=== PATIENT | female | born 1980 | race Caucasian/White ===

== ENCOUNTER 2020-03-24 11:39 | Observation (INO) | payer OTHER ==
[2020-03-24] MEDS ORDERED: IPRATROPIUM-ALBUTEROL 3 ML NEB INHALATION STA (11:53)
--- NOTE | 2020-03-24 11:56 | ED ---
General Adult HPI - General Chief complaint: Shortness of Breath Stated complaint: SOB Time Seen by Provider: 03/24/20 11:47 Source: patient, RN notes reviewed Mode of arrival: ambulatory Limitations: no limitations - History of Present Illness Initial comments: Patient is a pleasant 39-year-old female presenting to the emergency Department with complaints of difficulty breathing. Symptoms have been ongoing for the past several days however mild for maybe a week or 2 prior to that. Patient does have history of long-standing asthma with somewhat similar symptoms. No significant cough. Patient has had a dull ache waxing and waning in her chest t hat has been mild. None at this time. No leg pain or leg swelling. No fevers. - Related Data Home Medications Medication Instructions Recorded Confirmed Albuterol Sulfate [Proair Hfa] 1 puff INHALATION RT-Q6H PRN 05/14/16 05/14/16 Bronkaid 1 tab PO DAILY PRN 05/14/16 05/14/16 Multivitamins, Thera [Multivitamin] 1 tab PO DAILY 05/14/16 05/14/16 Previous Rx's Medication Instructions Recorded Albuterol Inhaler (Mhu) [Ventolin 2 puff INHALATION Q4HR PRN #1 05/14/16 Hfa Inhaler (Mhu)] inhaler LORazepam [Ativan] 0.5 mg PO TID PRN #15 tab 05/14/16 methylPREDNISolone [Medrol] 4 mg PO DIRECTED #1 tab.ds.pk 05/14/16 Allergies Allergy/AdvReac Type Severity Reaction Status Date / Time Penicillins Allergy Unknown Verified 03/24/20 11:44 Review of Systems ROS Statement: Those systems with pertinent positive or pertinent negative responses have been documented in the HPI. ROS Other: All systems not noted in ROS Statement are negative. Constitutional: Denies: fever, chills Eyes: Denies: eye pain ENT: Denies: ear pain Respiratory: Reports: dyspnea. Denies: cough Cardiovascular: Reports: chest pain Endocrine: Reports: fatigue Gastrointestinal: Denies: abdominal pain Genitourinary: Denies: urgency Musculoskeletal: Denies: back pain Skin: Denies: rash Neurological: Denies: weakness Past Medical History Past Medical History: No Reported History Additional Past Medical History / Comment(s): MTHFR History of Any Multi-Drug Resistant Organisms: None Reported Past Surgical History: Section, Tubal Ligation Past Psychological History: No Psychological Hx Reported Smoking Status: Never smoker Past Alcohol Use History: Occasional Past Drug Use History: None Reported General Exam Limitations: no limitations General appearance: alert, in no apparent distress Head exam: Present: normocephalic Eye exam: Present: normal appearance Neck exam: Present: normal inspection Respiratory exam: Present: normal lung sounds bilaterally Cardiovascular Exam: Present: regular rate, normal rhythm Expanded Peripheral pulses: 2+: Radial (R), Radial (L), Dorsalis Pedis (R), Dorsalis Pedis (L) GI/Abdominal exam: Present: soft. Absent: tenderness Extremities exam: Present: normal inspection. Absent: pedal edema, calf tenderness Back exam: Present: normal inspection Neurological exam: Present: alert Psychiatric exam: Present: normal affect, normal mood Skin exam: Present: normal color Course Vital Signs 03/24/20 03/24/20 03/24/20 11:40 12:15 12:23 Temperature 97.9 F Pulse Rate 56 L 64 60 Respiratory 18 Rate Blood Pressure 120/77 O2 Sat by Pulse 100 Oximetry EKG Findings - EKG Comments: EKG Findings:: Sinus bradycardia 59. IN 124. QRS 98. QT 440. QTc 443. Normal axis. Normal QRS. No acute ST change. Medical Decision Making - Medical Decision Making Patient reevaluated and resting comfortably in bed. No improvement of symptoms with nebulizer treatment. Patient updated on results and plan. Case was discussed with Dr. Mckeon, who will admit covered for Dr. Lopez, who admits for Dr. Hatch. - Lab Data Result diagrams: 03/24/20 12:20 03/24/20 12:20 Lab Results 03/24/20 03/24/20 03/24/20 Range/Units 12:20 12:20 12:20 WBC 4.9 (3.8-10.6) k/uL RBC 4.25 (3.80-5.40) m/uL Hgb 13.6 (11.4-16.0) gm/dL Hct 42.3 (34.0-46.0) % MCV 99.7 (80.0-100.0) fL MCH 32.0 (25.0-35.0) pg MCHC 32.1 (31.0-37.0) g/dL RDW 12.0 (11.5-15.5) % Plt Count 252 (150-450) k/uL Neutrophils % 67 % Lymphocytes % 25 % Monocytes % 4 % Eosinophils % 2 % Basophils % 1 % Neutrophils # 3.3 (1.3-7.7) k/uL Lymphocytes # 1.2 (1.0-4.8) k/uL Monocytes # 0.2 (0-1.0) k/uL Eosinophils # 0.1 (0-0.7) k/uL Basophils # 0.0 (0-0.2) k/uL PT 10.3 (9.0-12.0) sec INR 1.0 (<1.2) APTT 22.7 (22.0-30.0) sec D-Dimer 0.57 (<0.60) mg/L FEU Sodium 138 (137-145) mmol/L Potassium 3.9 (3.5-5.1) mmol/L Chloride 107 (98-107) mmol/L Carbon Dioxide 28 (22-30) mmol/L Anion Gap 3 mmol/L BUN 9 (7-17) mg/dL Creatinine 0.57 (0.52-1.04) mg/dL Est GFR (CKD-EPI)AfAm >90 (>60 ml/min/1.73 sqM) Est GFR (CKD-EPI)NonAf >90 (>60 ml/min/1.73 sqM) Glucose 85 (74-99) mg/dL Plasma Lactic Acid Gio (0.7-2.0) mmol/L Calcium 9.3 (8.4-10.2) mg/dL Total Bilirubin 0.7 (0.2-1.3) mg/dL AST 21 (14-36) U/L ALT 13 (4-34) U/L Alkaline Phosphatase 63 (38-126) U/L Troponin I (0.000-0.034) ng/mL Total Protein 7.0 (6.3-8.2) g/dL Albumin 4.1 (3.5-5.0) g/dL 03/24/20 03/24/20 Range/Units 12:20 12:20 WBC (3.8-10.6) k/uL RBC (3.80-5.40) m/uL Hgb (11.4-16.0) gm/dL Hct (34.0-46.0) % MCV (80.0-100.0) fL MCH (25.0-35.0) pg MCHC (31.0-37.0) g/dL RDW (11.5-15.5) % Plt Count (150-450) k/uL Neutrophils % % Lymphocytes % % Monocytes % % Eosinophils % % Basophils % % Neutrophils # (1.3-7.7) k/uL Lymphocytes # (1.0-4.8) k/uL Monocytes # (0-1.0) k/uL Eosinophils # (0-0.7) k/uL Basophils # (0-0.2) k/uL PT (9.0-12.0) sec INR (<1.2) APTT (22.0-30.0) sec D-Dimer (<0.60) mg/L FEU Sodium (137-145) mmol/L Potassium (3.5-5.1) mmol/L Chloride (98-107) mmol/L Carbon Dioxide (22-30) mmol/L Anion Gap mmol/L BUN (7-17) mg/dL Creatinine (0.52-1.04) mg/dL Est GFR (CKD-EPI)AfAm (>60 ml/min/1.73 sqM) Est GFR (CKD-EPI)NonAf (>60 ml/min/1.73 sqM) Glucose (74-99) mg/dL Plasma Lactic Acid Gio 1.3 (0.7-2.0) mmol/L Calcium (8.4-10.2) mg/dL Total Bilirubin (0.2-1.3) mg/dL AST (14-36) U/L ALT (4-34) U/L Alkaline Phosphatase (38-126) U/L Troponin I <0.012 (0.000-0.034) ng/mL Total Protein (6.3-8.2) g/dL Albumin (3.5-5.0) g/dL - Radiology Data Radiology results: image reviewed (Chest x-ray shows no acute process) Disposition Clinical Impression: Chest pain, Dyspnea Disposition: ADMITTED IP TO THIS [facility] Is patient prescribed a controlled substance at d/c from ED?: No Referrals: Huey Hatch DO [Primary Care Provider] - 1-2 days Decision Time: 13:53
[2020-03-24 12:36] LABS: Basophils % (A) 1 %; Eosinophils # (A) 0.1 k/uL (0-0.7); Eosinophils % (A) 2 %; HCT 42.3 % (34.0-46.0); HGB 13.6 gm/dL (11.4-16.0); Lymphocytes # (A) 1.2 k/uL (1.0-4.8); Lymphocytes % (A) 25 %; MCHC 32.1 g/dL (31.0-37.0); MCV 99.7 fL (80.0-100.0); Mean Platelet Volume 7.5; Monocytes # (A) 0.2 k/uL (0-1.0); Monocytes % (A) 4 %; Neutrophils # (A) 3.3 k/uL (1.3-7.7); Neutrophils % (A) 67 %; Platelet Count 252 k/uL (150-450); RBC 4.25 m/uL (3.80-5.40); WBC 4.9 k/uL (3.8-10.6)
[2020-03-24 12:48] LABS: D-Dimer 0.57 mg/L FEU (<0.60); Partial Thromboplastin Time 22.7 sec (22.0-30.0); Prothrombin Time 10.3 sec (9.0-12.0)
--- NOTE | 2020-03-24 12:48 | XR ---
EXAMINATION TYPE: XR chest 2V DATE OF EXAM: 03/24/2020 COMPARISON: Prior chest x-ray May 14, 2016 HISTORY: History of asthma with lightheadedness and difficulty in breathing. TECHNIQUE: Frontal and lateral views of the chest are obtained. FINDINGS: There is no focal air space opacity, pleural effusion, or pneumothorax seen. The cardiac silhouette size is within normal limits. The osseous structures are intact. Asymmetry to the breast sizes are redemonstrated. IMPRESSION: No acute cardiopulmonary process. No significant change from prior.
[2020-03-24 12:57] LABS: ALT 13 U/L (4-34); AST 21 U/L (14-36); African American GFR (CKD) >90 (>60 ml/min/1.73 sqM); Albumin 4.1 g/dL (3.5-5.0); Alkaline Phosphatase 63 U/L (38-126); Anion Gap 3 mmol/L; Blood Urea Nitrogen 9 mg/dL (7-17); Calcium 9.3 mg/dL (8.4-10.2); Carbon Dioxide 28 mmol/L (22-30); Chloride 107 mmol/L (98-107); Glucose 85 mg/dL (74-99); Non-African American GFR(CKD) >90 (>60 ml/min/1.73 sqM); Potassium 3.9 mmol/L (3.5-5.1); Sodium 138 mmol/L (137-145); Total Bilirubin 0.7 mg/dL (0.2-1.3)
[2020-03-24] MEDS ORDERED: ASPIRIN 81 MG PO STA (13:53)
[2020-03-24] MEDS ORDERED: NITROGLYCERIN SL TABS 0.4 MG TAB SUBLINGUAL PRN (13:53)
[2020-03-24] MEDS ORDERED: ALBUTEROL HFA INHALER INHALATION PRN (15:05)
[2020-03-24] MEDS ORDERED: IPRATROPIUM-ALBUTEROL 3 ML NEB INHALATION PRN (16:25)
--- NOTE | 2020-03-24 16:26 | P.HPIM ---
History of Present Illness H&P Date: 03/24/20 Chief Complaint: Difficulty in breathing Patient is a 39-year-old female with a known history of asthma, MTHFR gene mutation, past history of migraine headaches presents to ER with complaints of difficulty in breathing and on and off chest pains for the past 2 weeks. Chest pain lasting about a few seconds to hours sometimes. Mainly left retrosternal sharp pains. No associated nausea vomiting. Does have lightheadedness. No dizziness. Denied any diaphoresis. Denied any leg swelling. Denied any aggravating or relieving factors. Patient says that she did have a history of GERD previous back or stop taking PPI. Denied any cough or sputum production. No fever no chills. No prior history of coronary artery disease. Chest x-ray showed no acute cardio pulmonary process. No significant change from prior EKG showed sinus bradycardia with heart rate 59. D-dimer is 0.57 not elevated Troponin 1 negative All other laboratory data reviewed. Patient is not tachycardic or hypoxic on admission. Review of Systems Constitutional: Patient denies any fever or chills . No generalized weakness or weight loss. Abdomen: Patient denied nausea vomiting and diarrhea and abdominal pain. Cardiovascular: Patient did have chest pain and short of breath no palpitations. Respiratory: patient denied any cough is from production. No shortness of breath Neurologic: Patient denied any numbness or tingling headache. Musculoskeletal: Patient denies any complaints of joint swelling or deformity. Skin: Negative Psychiatric: Negative Endocrine: No heat or cold intolerance. No recent weight gain. Genitourinary: No dysuria or hematuria. All other 14 point ROS negative except the above Past Medical History Past Medical History: Asthma, Blood Disorder Additional Past Medical History / Comment(s): MTHFR, hypoglycemia, past migraines, MRI showed brain lesions years ago. History of Any Multi-Drug Resistant Organisms: None Reported Past Surgical History: Section, Tubal Ligation Additional Past Surgical History / Comment(s): D&C, surgery for ectopic . Past Anesthesia/Blood Transfusion Reactions: Motion Sickness Past Psychological History: No Psychological Hx Reported Additional Psychological History / Comment(s): Pt resides with her fiancee and her dog. She is independent. Smoking Status: Never smoker Past Alcohol Use History: Occasional Additional Past Alcohol Use History / Comment(s): Pt started smoking in 1991 and smoked on and off until 2011. Past Drug Use History: None Reported - Past Family History Father Family Medical History: No Reported History Additional Family Medical History / Comment(s): Father is healthy Mother Family Medical History: Blood Disorder Additional Family Medical History / Comment(s): MTHFR Medications and Allergies Home Medications Medication Instructions Recorded Confirmed Type Multivitamins, Thera [Multivitamin] 1 tab PO DAILY 05/14/16 03/24/20 History Albuterol Sulfate [Ventolin HFA] 2 puff INHALATION RT-Q6H PRN 03/24/20 03/24/20 History Aspirin EC [Ecotrin Low Dose] 81 mg PO DAILY 03/24/20 03/24/20 History Allergies Allergy/AdvReac Type Severity Reaction Status Date / Time Penicillins Allergy Unknown Verified 03/24/20 11:44 Physical Exam Vitals: Vital Signs Temp Pulse Resp BP Pulse Ox 03/24/20 14:17 98.8 F 68 18 119/66 100 03/24/20 12:23 60 03/24/20 12:15 64 03/24/20 11:40 97.9 F 56 L 18 120/77 100 Intake and Output 03/24/20 03/24/20 03/24/20 06:59 14:59 22:59 Other: Weight 65.771 kg PHYSICAL EXAMINATION: Patient is lying in the bed comfortably, no acute distress, awake alert and oriented.. HEENT: Normocephalic. Neck is supple. Pupils reactive. Nostrils clear. Oral cavity is moist. Ears reveal no drainage. Neck reveals no JVD, carotid bruits, or thyromegaly. CHEST EXAMINATION: Trachea is central. Symmetrical expansion. Lung mack clear to auscultation and percussion. CARDIAC: Normal S1, S2 with no gallops. No murmurs ABDOMEN: Soft. Bowel sounds normal. No organomegaly. No abdominal bruits. Extremities: reveal no edema. No clubbing or cyanosis Neurologically awake, alert, oriented x3 with well-coordinated movements. No focal deficits noted Skin: No rash or skin lesions. Psychiatric: Coperative. Nonsuicidal Musculoskeletal: No joint swelling or deformity. Normal range of motion. Results CBC & Chem 7: 03/24/20 12:20 03/24/20 12:20 Thrombosis Risk Factor Assmnt - DVT/VTE Prophylaxis DVT/VTE Prophylaxis: Pharmacologic Prophylaxis ordered Assessment and Plan Assessment: Atypical chest pain and exertional dyspnea. Rule out ACS. History of asthma. Not in exacerbation MTHFR gene mutation. D-dimer not elevated. Unlikely thromboembolism. History of migraine headaches History of smoking quit in 2011 GI prophylaxis with PPI DVT prophylaxis with early ablation Plan: Patient will be continued on telemetry monitoring. Serial EKG and troponin 3. Continue with albuterol breathing treatments as needed and follow-up. Cardiology was consulted. Further recommendations based on the clinical course. Time with Patient: Greater than 30
[2020-03-24] MEDS: PANTOPRAZOLE 40 MG TABLET PO SCH (17:28)
[2020-03-24] MEDS: NITROGLYCERIN OINT 1 INCH/GM PACKET TOPICAL SCH ×2 (17:28→23:40)
--- NOTE | 2020-03-24 20:18 | CONS ---
CONSULTATION This is a pleasant young lady who presented to hospital with chest pain and shortness of breath. Her chest discomfort is sharp, precordial unrelated to exertion and unassociated with diaphoresis. There is no clear-cut radiation to neck, arm or back. She also complains of some shortness of breath. EKG does not reveal ischemic changes. Chest x-ray is negative. First set of troponins negative as is the D-dimer. She has history of smoking but quit many years ago. She does not have any other history. There is no history of hypertension, diabetes, dyslipidemia. She is not taking any medications at the moment. She used to take albuterol on an as- needed basis and carries a history of asthma. ALLERGIES: Are as charted. FAMILY HISTORY: Negative for premature coronary artery disease. SOCIAL HISTORY: She is an ex-smoker. There is no history of EtOH abuse or drug abuse. REVIEW OF SYSTEMS: HEENT is unremarkable. CARDIAC as described above. RESPIRATORY as described above. GI negative. : Negative. ALLERGY/IMMUNOLOGY: Negative. SKIN negative. MUSCULOSKELETAL: Negative. ENDOCRINE: Negative. DERM negative. CONSTITUTIONAL: Negative. ONCOLOGICAL negative. SHUTTLER CAR negative. Rest of the system review is not relevant. EXAM: Comfortable at rest. Vital signs are stable. There is no jugular venous distention. Carotid upstroke is normal. There is no bruit. Chest exam reveals good air entry bilaterally. Heart exam reveals first and second heart sounds. No gallop. No murmur. No rub. Abdomen is soft, nontender. Exam of extremities did not reveal edema. Peripheral pulses are felt. SHUTTLER CAR exam did not reveal focal neurological deficits. EKG is unremarkable. Cardiac enzyme is negative. ASSESSMENT: Precordial chest pain, sharp, atypical, CT is normal. Cardiac enzymes are normal. We will obtain serial CPKs and repeat a stress test in the morning. MMODL / IJN: [id number] /
[2020-03-25] MEDS: NITROGLYCERIN OINT 1 INCH/GM PACKET TOPICAL SCH ×2 (00:47→11:53)
[2020-03-25 04:22] VITALS: RESP 18
[2020-03-25 07:18] LABS: Cholesterol 163 mg/dL (<200); HDL Cholesterol 94 mg/dL (40-60); LDL Cholesterol,Calculated 60 mg/dL (0-99); Triglycerides 46 mg/dL (<150)
--- NOTE | 2020-03-25 08:55 | CT ---
CT CHEST FOR PULMONARY EMBOLISM. EXAMINATION TYPE: CT angio chest DATE OF EXAM: 03/25/2020 INDICATION: Chest pains and shortness of breath CT DLP: 267.3 mGycm, Automated exposure control for dose reduction was used. CONTRAST: Patient injected with 100, wasted 15 mL of Isovue 370. COMPARISON: 06/23/2011 TECHNIQUE: CT of the chest is performed on a spiral scan at 2 mm thick sections. Study is performed with intravenous contrast timed for evaluation for pulmonary embolism. This will limit additional po rtions of the evaluation. 3-D MIP images reconstructed by the technologist are reviewed on the compu ter in the coronal and sagittal planes. FINDINGS: No persistent filling defects are evident to suggest an acute pulmonary embolism. No mediastinal or hilar adenopathy enlarged by CT criteria is evident. The ascending aorta diameter at the level of the main pulmonary artery is 2.9 cm. The main pulmonary artery diameter at the bifur cation is 2.3 cm. Lung windows are clear. Limited CT section through the upper abdomen. There is a 4.2 cm hypodensity which may has some very m inimal peripheral enhancement hemangioma could be considered. Other etiologies are not excluded this was present in 2011 but appears larger. IMPRESSIONS: 1. No acute pulmonary embolism. 2. Hypodensity which is nonspecific within the liver is larger than 2011. Recommend ultrasound to romel luate for hemangioma.
[2020-03-25] MEDS ORDERED: ASPIRIN 325 MG TAB PO SCH (09:00)
[2020-03-25] MEDS: PANTOPRAZOLE 40 MG TABLET PO SCH (11:53)
[2020-03-25 11:56] VITALS: BP 114/76; PULSE 72; TEMP 98.5
--- NOTE | 2020-03-25 12:39 | CONS ---
CONSULTATION REASON FOR CONSULTATION: Shortness of breath and chest discomfort. This is a 39-year-old female who was admitted through the emergency room yesterday. She came in and saw Dr. Monique yesterday. She came in primarily with shortness of breath which had been going on for at least a couple of weeks and maybe a bit longer. She also had some chest discomfort in the center of her chest. She felt it to be a pressure or heaviness. Anyway, she was admitted to the observation unit. Her cardiac enzymes are negative. Her chest x-ray was normal. She does have a history of mild asthma. Her major complaint, shortness of breath, chest tightness and wheezing when her asthma act up. She took her albuterol inhaler, it did not help. She does not feel like this is her asthma acting up and she did really have the tightness and wheezing that she typically has when she has asthma. She has intermittent asthma and her symptoms are mild and she uses a rescue inhaler only infrequently. In addition, she mentions to me that she has a blood disorder and when asked, she says she has the MTHFR mutation. This is 1 of the mutations which can cause a hypercoagulable state. Her chest x-ray was normal as I mentioned. Her cardiac enzymes were normal. She was going to have a stress test today. Her D-dimer was normal and typically, I would not order a CT angiogram when the D-dimer is normal, but because of the MTHFR mutation and because we do not really have a good explanation for why she is having shortness of breath and chest pain, I think it is reasonable to order. Other than that, she is relatively healthy. She states that she is a nonsmoker. No other major medical problems. She is relatively fit. She does exercise. HOME MEDICATIONS: Include albuterol rescue inhaler, multivitamins and Bronkaid. ALLERGIES: PENICILLIN. MEDICAL HISTORY: Primarily mild asthma and MTHFR mutation. PAST SURGICAL HISTORY: Includes and tubal ligation. SOCIAL HISTORY: Negative for tobacco. She drinks occasionally. No illicit drug use. FAMILY HISTORY: Noncontributory. REVIEW OF SYSTEMS: CONSTITUTIONAL: Negative. NEUROLOGIC: Negative. HEENT: Negative. CARDIOVASCULAR: Chest pain. PULMONARY: Shortness of breath. GI: Negative. : Negative. RHEUMATOLOGIC: Negative. IMMUNOLOGIC: Negative. ENDOCRINOLOGIC: Negative. DERMATOLOGIC: Negative. Current vital signs are reviewed, temperature is 97.8, heart rate 55, respiratory rate 18, blood pressure 103/57 mean 72, room air saturation 99%. Appears in no acute distress. HEENT: Examination is grossly unremarkable. NECK: Supple, full range of motion. No adenopathy. Neck veins are flat. CARDIOVASCULAR: Examination reveals regular rhythm and rate. Heart rate right around 60. S1, S2 normal. LUNGS: Clear breath sounds equal. No wheezes, rhonchi, or crackles. ABDOMEN: Soft. EXTREMITIES: Intact. No cyanosis, clubbing, or edema. No tenderness on palpation. SKIN: Without rash. NEUROLOGIC: Examination is nonfocal. LABS: Reviewed. CBC is completely normal. PT, INR, PTT normal, D-dimer 0.57. Electrolytes completely normal including sodium, potassium chloride, CO2, anion gap, BUN and creatinine. Troponins were negative x3. Brandt virus by PCR was nondetectable. Chest x-ray was normal. EKG showed a sinus bradycardia. No acute changes. ASSESSMENT: 1. Shortness of breath and chest pain, of unclear etiology. 2. History of asthma. 3. History of MTHFR mutation. PLAN: The patient will have a stress test ordered by Cardiology. In addition, I am going to go ahead and order a CT angiogram, even though her D-dimer is normal. The only thing that makes me a bit suspicious is because of the MTHFR mutation. This does not feel like her asthma according to her. Her albuterol inhaler did not work. She was not having the tightness and wheezing that she typically has with her asthma. Chest x-ray is normal. If her CT angiogram is negative, from the pulmonary standpoint, she could be discharged home. I would be happy to see her in the office in followup to further assess for asthma. Additional recommendations and suggestions are forthcoming. MMODL / IJN: [id number] /
--- NOTE | 2020-03-25 13:36 | P.PN ---
Subjective This is a pleasant 39-year-old female with no significant past medical history. She underwent a stress echocardiogram today that was negative for stress induced ischemia. Blood pressure 114/76 heart rate 72 afebrile maintaining oxygen saturation on room air. Cardiac enzymes negative 3, LDL 60 and HDL 94. GENERAL: Well-appearing, well-nourished and in no acute distress. NECK: Supple without JVD or thyromegaly. LUNGS: Breath sounds clear to auscultation bilaterally. Respiration equal and unlabored. No wheezes, rales or rhonchi. HEART: Regular rate and rhythm without murmurs, rubs or gallops. S1 and S2 heard. EXTREMITIES: Normal range of motion, no edema. No clubbing or cyanosis. Peripheral pulses intact. ASSESSMENT Precordial chest pain, atypical. An acute event has been ruled out. PLAN Stress test is negative for stress-induced cardiac ischemia. Stable for discharge from a cardiac perspective. Follow-up in the office with Dr. Krueger in 2 weeks. Nurse Practitioner note has been reviewed, I agree with a documented findings and plan of care. Patient was seen and examined. Objective - Vital Signs Vital signs: Vital Signs Temp 98.5 F 03/25/20 11:56 Pulse 72 03/25/20 11:56 Resp 18 03/25/20 11:56 BP 114/76 03/25/20 11:56 Pulse Ox 100 03/25/20 11:56 Intake & Output 03/24/20 03/25/20 03/25/20 18:59 06:59 18:59 Intake Total 420 240 Balance 420 240 Weight 65.771 kg 65.77 kg Intake: Oral 420 240 Other: Voiding Method Toilet Toilet # Voids 1 1 - Labs CBC & Chem 7: 03/24/20 12:20 03/24/20 12:20 Labs: Abnormal Lab Results - Last 24 Hours (Table) 03/25/20 Range/Units 06:42 HDL Cholesterol 94 H (40-60) mg/dL
--- NOTE | 2020-03-25 14:55 | ECHOS ---
STRESS ECHOCARDIOGRAM LUMASON: Vial INDICATIONS: Chest Pain MEDICATIONS: Multivitamin, ASA, Albuterol Sulfate BASELINE HEART RATE: 65 BASELINE BLOOD PRESSURE: 107/66 MAXIMUM HEART RATE: 166 MAXIMUM BLOOD PRESSURE: 139/70 85% MPHR: 152 100% MPHR: 179 METS: 12.1 MAXIMUM STAGE REACHED: 4 TOTAL EXERCISE TIME: 10:30 INDICATION: Chest pain. Baseline EKG shows sinus rhythm, normal axis, normal intervals. Patient exercised on Raúl protocol for a total of 10.5 minutes, achieving 12 METS, 85% of predicted maximal heart rate without chest pain or diagnostic ST-segment depression. Baseline echo shows normal left ventricular size, wall motion systolic function. Postexercise there is normal hyperdynamic response of all the segments of myocardium noted. CONCLUSION: 1. Excellent exercise tolerance. 2. Negative stress test by EKG criteria. 3. Negative stress echo. MMETHAN / BRUCE: [id number] /
--- NOTE | 2020-03-26 10:37 | ECHOF ---
Referral Reason:chest pain MEASUREMENTS -------- HEIGHT: 172.7 cm WEIGHT: 65.8 kg BP: 103/57 RVIDd: 3.4 cm (< 3.3) IVSd: 1.0 cm (0.6 - 1.1) LVIDd: 4.3 cm (3.9 - 5.3) LVPWd: 0.9 cm (0.6 - 1.1) IVSs: 1.5 cm LVIDs: 2.7 cm LVPWs: 1.6 cm LAESV Index (A-L): 26.50 ml/m Ao Diam: 3.2 cm (2.0 - 3.7) AV Cusp: 2.2 cm (1.5 - 2.6) MV EXCURSION: 15.184 mm (> 18.000) MV EF SLOPE: 120 mm/s (70 - 150) EPSS: 0.4 cm MV E David: 1.11 m/s MV DecT: 262 ms MV A David: 0.30 m/s MV E/A Ratio: 3.65 RAP: 5.00 mmHg RVSP: 32.71 mmHg FINDINGS -------- Sinus rhythm. This was a technically good study. The left ventricular size is normal. Left ventricular wall thickness is normal. There is normal g lobal left ventricular contractility. Overall left ventricular systolic function is normal with, an EF between 60 - 65 %. The diastolic filling pattern is normal for the age of the patient 9.05. The right ventricle is mildly enlarged. Normal LA size by volume 22+/-6 ml/m2. The right atrial size is normal. Interatrial and interventricular septum intact. The aortic valve is trileaflet and appears structurally normal. There is no evidence of aortic regu rgitation. There is no evidence of aortic stenosis. Mild mitral regurgitation is present. Mild tricuspid regurgitation present. There is no evidence of pulmonary hypertension. The right v entricular systolic pressure, as measured by Doppler, is 32.71mmHg. There is no pulmonic regurgitation present. The aortic root size is normal. The inferior vena cava is mildly dilated. There is no pericardial effusion. CONCLUSIONS -------- 1. Sinus rhythm. 2. This was a technically good study. 3. The left ventricular size is normal. 4. Left ventricular wall thickness is normal. 5. There is normal global left ventricular contractility. 6. Overall left ventricular systolic function is normal with, an EF between 60 - 65 %. 7. The diastolic filling pattern is normal for the age of the patient 9.05 8. The right ventricle is mildly enlarged. 9. Normal LA size by volume 22+/-6 ml/m2. 10. The right atrial size is normal. 11. Interatrial and interventricular septum intact. 12. The aortic valve is trileaflet and appears structurally normal. 13. There is no evidence of aortic regurgitation. 14. There is no evidence of aortic stenosis. 15. Mild mitral regurgitation is present. 16. Mild tricuspid regurgitation present. 17. There is no evidence of pulmonary hypertension. 18. The right ventricular systolic pressure, as measured by Doppler, is 32.71mmHg. 19. There is no pulmonic regurgitation present. 20. The aortic root size is normal. 21. The inferior vena cava is mildly dilated. 22. There is no pericardial effusion. THERAPEUTIC RECREATION ASSISTANT: Catalina Stephens RDCS
--- NOTE | 2020-04-03 00:06 | P.DS ---
Providers Date of admission: 03/24/20 13:53 Expected date of discharge: 03/25/20 Attending physician: Soto Mckeon Consults: 03/24/20 13:53 Consult Physician Routine Consulting Provider: Mele Casey Consult Reason/Comments: dyspnea Do you want consulting provider notified?: Yes Consult Physician Urgent Consulting Provider: Brando Morgan Consult Reason/Comments: cp Do you want consulting provider notified?: Yes Primary care physician: [facility] Course: Discharge Diagnosis Atypical chest pain and exertional dyspnea. Ruled out ACS. History of asthma. Not in exacerbation MTHFR gene mutation. D-dimer not elevated. Unlikely thromboembolism. History of migraine headaches History of smoking quit in 2011 GI prophylaxis with PPI DVT prophylaxis with early ablation Hospital Course Patient is a 39-year-old female with a known history of asthma, MTHFR gene mutation, past history of migraine headaches presents to ER with complaints of difficulty in breathing and on and off chest pains for the past 2 weeks. Chest pain lasting about a few seconds to hours sometimes. Mainly left retrosternal sharp pains. No associated nausea vomiting. Does have lightheadedness. No dizziness. Denied any diaphoresis. Denied any leg swelling. Denied any aggravating or relieving factors. Patient says that she did have a history of GERD previous back or stop taking PPI. Denied any cough or sputum production. No fever no chills. No prior history of coronary artery disease. Chest x-ray showed no acute cardio pulmonary process. No significant change f rom prior EKG showed sinus bradycardia with heart rate 59. D-dimer is 0.57 not elevated Troponin 1 negative All other laboratory data reviewed. Patient is not tachycardic or hypoxic on admission. Patient was continued on telemetry monitoring. Serial EKG and troponin 3. Continued with albuterol breathing treatments as needed and follow-up. Cardiology was consulted. Stress test is negative for stress-induced cardiac ischemia. Pt. is cleared from Cardiology stand point. PHYSICAL EXAMINATION: Patient is lying in the bed comfortably, no acute distress, awake alert and oriented.. HEENT: Normocephalic. Neck is supple. Pupils reactive. Nostrils clear. Oral cavity is moist. Ears reveal no drainage. Neck reveals no JVD, carotid bruits, or thyromegaly. CHEST EXAMINATION: Trachea is central. Symmetrical expansion. Lung mack clear to auscultation and percussion. CARDIAC: Normal S1, S2 with no gallops. No murmurs ABDOMEN: Soft. Bowel sounds normal. No organomegaly. No abdominal bruits. Extremities: reveal no edema. No clubbing or cyanosis Neurologically awake, alert, oriented x3 with well-coordinated movements. No focal deficits noted Skin: No rash or skin lesions. Psychiatric: Coperative. Nonsuicidal Musculoskeletal: No joint swelling or deformity. Normal range of motion. Discharge vitals reviewed. Patient Condition at Discharge: Stable Plan - Discharge Summary Discharge Rx Participant: No New Discharge Prescriptions: New Pantoprazole [Protonix] 40 mg PO AC-BRKFST #30 tablet. Continue Multivitamins, Thera [Multivitamin (formulary)] 1 tab PO DAILY Aspirin EC [Ecotrin Low Dose] 81 mg PO DAILY Albuterol Sulfate [Ventolin HFA] 2 puff INHALATION RT-Q6H PRN PRN Reason: Shortness Of Breath Discharge Medication List Multivitamins, Thera [Multivitamin (formulary)] 1 tab PO DAILY 05/14/16 [History] Albuterol Sulfate [Ventolin HFA] 2 puff INHALATION RT-Q6H PRN 03/24/20 [History] Aspirin EC [Ecotrin Low Dose] 81 mg PO DAILY 03/24/20 [History] Pantoprazole [Protonix] 40 mg PO AC-BRKFST #30 tablet. 03/25/20 [Rx] Follow up Appointment(s)/Referral(s): Huey Hatch DO [Primary Care Provider] - 1-2 days Mele Casey DO [Doctor of Osteopathic Medicine] - 2 Weeks Raphael Krueger MD [STAFF PHYSICIAN] - 04/08/20 4:30 pm Patient Instructions/Handouts: Chest Pain (DC), Dyspnea (DC), Shortness of Breath (DC) Discharge Disposition: HOME SELF-CARE
== END 2020-03-25 14:22 | disposition home or self-care (01) ==
LOC: EC 11:39 → 1SOBS 13:53
PROVIDERS: ADMIT Internal Medicine; ATTEND Internal Medicine
DX: R07.89 Other chest pain (principal); R07.2 Precordial pain; R42 Dizziness and giddiness; R00.1 Bradycardia, unspecified; R06.02 Shortness of breath; R06.09 Other forms of dyspnea; Z20.828 Contact with and (suspected) exposure to other viral communicable diseases; J45.20 Mild intermittent asthma, uncomplicated; E72.12 Methylenetetrahydrofolate reductase deficiency; G43.909 Migraine, unspecified, not intractable, without status migrainosus; K21.9 Gastro-esophageal reflux disease without esophagitis; Z87.891 Personal history of nicotine dependence; Z79.82 Long term (current) use of aspirin; Z79.899 Other long term (current) drug therapy; Z88.0 Allergy status to penicillin; Z83.2 Family history of diseases of the blood and blood-forming organs and certain disorders involving the immune mechanism
CPT/HCPCS: 99285; 36415; 94640 ×2; 93005 ×2; 93306; 93351; 85379; 80061; 80053; 83605; 84484; 85025; 85610; 85730; 71046; 71275; G0378 ×2; U0003; Q9967

== ENCOUNTER 2022-08-23 06:14 | Day surgery (SDC) | payer BC ==
[2022-08-18 12:02] VITALS: BMI 22.0
--- NOTE | 2022-08-20 06:41 | P.HPOB ---
History of Present Illness H&P Date: 08/20/22 Chief Complaint: Menorrhagia This patient is a pleasant 42-year-old 8 para 2 female presented to my office with complaints of heavy long menstrual bleeding. Patient's evaluation included a pelvic ultrasound which showed a normal size uterus and a thin endometrium however showed multiple small fibroids. We attempted an endometrial biopsy in the office however was unable due to cervical stenosis. I discussed options with the patient is far as treatment she wished to proceed with endometrial ablation for treatment. Review of Systems Menstruation: Reports as per HPI, Reports period heavy Past Medical History Past Medical History: Asthma, Blood Disorder Additional Past Medical History / Comment(s): MTHFR, hypoglycemia, hx migraines, none now, MRI showed brain lesions years ago. History of Any Multi-Drug Resistant Organisms: None Reported Past Surgical History: Section, Tubal Ligation Additional Past Surgical History / Comment(s): D&C, surgery for ectopic . Past Anesthesia/Blood Transfusion Reactions: Motion Sickness Past Psychological History: No Psychological Hx Reported Smoking Status: Never smoker Past Alcohol Use History: Occasional Additional Past Alcohol Use History / Comment(s): Started smoking in 1991, smoked on and off until 2011. No alcohol in a few months. Past Drug Use History: None Reported - Past Family History Father Family Medical History: No Reported History Additional Family Medical History / Comment(s): Father is healthy Mother Family Medical History: Blood Disorder Additional Family Medical History / Comment(s): MTHFR. Sister(s) Daughter(s) Family Medical History: Blood Disorder Additional Family Medical History / Comment(s): MTHFR. Medications and Allergies Home Medications Medication Instructions Recorded Confirmed Type Multivitamins, Thera [Multivitamin 1 tab PO DAILY 05/14/16 08/18/22 History (formulary)] Albuterol Sulfate [Ventolin HFA] 2 puff INHALATION RT-Q6H PRN 03/24/20 08/18/22 History Aspirin EC [Ecotrin Low Dose] 81 mg PO DAILY 03/24/20 08/18/22 History L.acidoph,Paracasei, B.lactis 1 each PO DAILY 08/18/22 08/18/22 History [Probiotic] Allergies Allergy/AdvReac Type Severity Reaction Status Date / Time Penicillins Allergy Rash/Hives Verified 08/18/22 12:03 Exam - OBG Physical Exam Abdomen: bowel sounds normal, no diffuse tenderness, no bruit present, no guarding noted, no hepatomegaly, no splenomegaly, no mass Vulva: both: normal Vagina: normal moisture, no discharge Cervix: no lesion, no discharge Uterus: normal size, normal contour Results Transvaginal ultrasound on July 19 of normal size uterus with endometrium of 4.1 mm. Showed multiple small fibroids. Assessment and Plan Assessment: This is a pleasant 42-year-old 8 para 2 female who presents for endometrial ablation secondary to menorrhagia. Plan is hysteroscopy, D&C, and NovaSure endometrial ablation. I did discuss with the patient the surgery and risks and risks of infection, bleeding, possible uterine perforation, and/or thermal injury. All the patient's questions are answered and a written consent is obtained. (1) Menorrhagia Status: Acute Code(s): N92.0 - EXCESSIVE AND FREQUENT MENSTRUATION WITH REGULAR CYCLE SNOMED Code(s): 785101908
[~2022-08-23 06:14] MED LIST: Pre Op ABX Message 1 EACH MISC MISCELLANE ONE
[2022-08-23] MEDS ORDERED: LACTATED RINGERS 1,000 ML IV ONE (06:38)
[2022-08-23] MEDS ORDERED: ONDANSETRON 4 MG/2 ML VIAL IVP ONE (06:46)
[2022-08-23] MEDS ORDERED: DEXAMETHASONE SOD PHOSPHATE 4 MG/ML 1 ML VIAL IVP ONE (06:47)
[2022-08-23] MEDS ORDERED: ONDANSETRON 4 MG/2 ML VIAL ONE (06:48)
[2022-08-23] MEDS ORDERED: ePHEDrine 50 MG/ML 1 ML VIAL ONE (07:17)
[2022-08-23] MEDS ORDERED: fentaNYL (PF) 50 MCG/ML 2 ML AMP ONE (07:17)
[2022-08-23] MEDS ORDERED: MIDAZOLAM 2 MG/2 ML VIAL ONE (07:17)
[2022-08-23] MEDS ORDERED: LIDOCAINE 2% INJ 20 MG/ML (2 ML VIAL) ONE (07:17)
[2022-08-23] MEDS ORDERED: PROPOFOL 10 MG/ML 20 ML VIAL IV ONE (07:17)
--- NOTE | 2022-08-23 07:58 | P.OP ---
Date of Procedure: 08/23/22 Preoperative Diagnosis: Menorrhagia. Postoperative Diagnosis: Same Procedure(s) Performed: #1: Hysteroscopy. #2: Dilation and curettage. #3: NovaSure endometrial ablation Anesthesia: other (LMA) Surgeon: Kvng Dsouza Estimated Blood Loss (ml): 10 Urine output (ml): 10 Pathology: other (Uterine curettings) Condition: stable Disposition: PACU Indications for Procedure: Please see dictated H&P for intimate details of this patient's admission. Brief summary this is a pleasant 42-year-old multiparous patient who's had long- standing menorrhagia requesting endometrial ablation for treatment. I did discuss the surgery and risks with the patient including risks of infection, bleeding, possible uterine perforation, and/or thermal injury. All the patient's questions are answered and a written consent is obtained. Operative Findings: This patient had small fibroids impinging on the uterine cavity but otherwise it appeared normal. Description of Procedure: This patient is taken to the operating room where she is laid in supine position. She subsequently undergoes general anesthesia without incident. With an adequate level of anesthesia placed in dorsal lithotomy position. She has a vaginal perineal prep and drape. Examination under anesthesia shows a mid position uterus of normal size. Weighted speculum was placed in the posterior vagina. The bladder is drained for 10 mL of clear urine. I grabbed the anterior lip of the cervix with an Allis clamp. Cervix is gently dilated to allow uterine sound into the uterine cavity. Uterus is sounded to 8.5 cm. With this done gentle dilation is then done to allow the hysteroscope into the uterine cavity. Hysteroscopy is performed with saline solution the uterine cavity is measured a length of 5.5 cm. Uterine cavity appears clear except for small impingement symptoms fibroids from the muscle. She is felt to be a candidate for the NovaSure. Cervix is dilated gently more to allow a small curette into the uterine cavity. Gentle but thorough 4 quadrant curettage is done. This completed the NovaSure device is then opened. Set at a length of 5.5 cm and opens up to a width of 3.1 cm. It is then enabled after it passes the cavity integrity test for 109 seconds. NovaSure device is then removed. Hysteroscopy is performed again and the uterine cavity appears completely ablated up to the endocervix. This done the procedure is ended. The Allis clamp and weighted speculum removed. All counts are correct 3. There are no complications. Patient is awakened from anesthesia and taken recovery room in satisfactory condition.
[2022-08-23 08:05] VITALS: TEMP 97.4
[2022-08-23 09:15] VITALS: RESP 20
[2022-08-23 09:31] VITALS: BP 107/70; PULSE 48
== END 2022-08-23 09:45 | disposition home or self-care (01) ==
LOC: OR 06:14
PROVIDERS: ATTEND Obstetrics & Gynecology
DX: N92.0 Excessive and frequent menstruation with regular cycle (principal); D25.9 Leiomyoma of uterus, unspecified; J45.909 Unspecified asthma, uncomplicated; Z87.891 Personal history of nicotine dependence; Z64.1 Problems related to multiparity; Z79.82 Long term (current) use of aspirin; Z87.59 Personal history of other complications of pregnancy, childbirth and the puerperium; Z88.0 Allergy status to penicillin
CPT/HCPCS: 81025; 88305; 58563; J2250; J1100; J2405; J3010; J2704; J2001